=== PATIENT | female | born 1980 | race Caucasian/White ===

== ENCOUNTER → 2022-02-23 10:16 | Outpatient (CLI) | payer OTHER, SELFPAY ==
[2022-02-23 10:42] LABS: Basophils # 0.1 K/mm3 (0-0.2); Basophils % 0.8 % (0.1-2.0); Eosinophils # 0.3 K/mm3 (0.0-0.4); Eosinophils % 4.5 % (0.1-12.0); Hematocrit 38.8 % (37.0-47.0); Hemoglobin 13.3 g/dL (12.2-16.2); Lymphocytes # 1.5 K/mm3 (0.7-4.5); Lymphocytes % 26.4 % (10-50); Mean Corpuscular HGB Conc 34.3 g/dL (31.8-35.4); Mean Corpuscular Hemoglobin 33.3 pg (27.0-31.2); Mean Corpuscular Volume 97.1 fl (81-99); Monocytes # 0.4 K/mm3 (0.1-1.0); Monocytes % 7.7 % (1.7-9.3); Neutrophils # 3.3 K/mm3 (1.8-7.8); Neutrophils % 60.6 % (37.0-80.0); Platelet Count 123 K/mm3 (142-424); Red Cell Distribution Width 12.5 % (11.5-17.5); White Blood Count 5.5 K/mm3 (4.8-10.8)
[2022-02-23 11:27] LABS: Alanine Aminotransferase 13 U/L (12-78); Albumin Level 4.3 g/dl (3.5-5.0); Alkaline Phosphatase 57 U/L (38-126); Aspartate Amino Transferase 23 U/L (14-36); Bilirubin,Indirect 0.2 mg/dL (0.0-0.9); Bilirubin,Total 0.2 mg/dl (0.2-1.3); Bilirubin,Unconjugated 0.5 mg/dL (0.0-1.1); Blood Urea Nitrogen 7 mg/dl (7-17); Calcium 8.6 mg/dl (8.4-10.2); Carbon Dioxide 27 mmol/L (22.0-30.0); Chloride 106 mmol/L (98-107); Estimated Glomerular Filt Rate 93 ml/min (>60); GFR (African American) 113 ML/MIN (>60); Glucose 111 mg/dl (74-100); Sodium 139 mmol/L (136-145); Total Protein,Serum 7.1 g/dl (6.3-8.2)
[2022-02-24 09:13] LABS: HIV Screen 4th Generation wRfx Non Reactive (Non Reactive)
[2022-02-26 23:13] LABS: Hep A Ab, IgM NEGATIVE; Hepatitis B Core Antibody IgM NEGATIVE; Hepatitis B Surface Antigen NEGATIVE; Hepatitis C Antibody <0.1
== END ==
PROVIDERS: PCP Family Medicine; Visit Provider Psychiatry & Neurology Psychiatry
DX: F11.20 Opioid dependence, uncomplicated (principal)
CPT/HCPCS: 36415; 80048; 80074; 80076; 85025; 86703; G0432